=== PATIENT | female | born 1945 | race Caucasian/White ===

== ENCOUNTER 2022-07-23 19:17 | Emergency (ER) | payer OTHER, SELFPAY ==
--- NOTE | ~2022-07-23 | XR_ITS ---
XR hand RT min 3V 07/23/2022 19:49 Indication: Right hand pain after trauma Procedure: 3 views right hand Comparison: No prior studies for comparison. Findings: There is a large amount soft tissue swelling dorsal aspect of the hand overlying the metaca rpals. 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 Osteo penia. There is a small linear foreign body overlying the first distal phalanx. No acute fracture is identified. Impression: 1: No acute fracture. Large amount of soft tissue swelling dorsal aspect of the hand. 2: Severe polyarticular osteoarthritis. 3: Linear radiopaque foreign body overlying the first distal phalanx. Reviewed, dictated and finalized at location A. [facility] Impression: 1: No acute fracture. Large amount of soft tissue swelling dorsal aspect of the hand. 2: Severe polyarticular osteoarthritis. 3: Linear radiopaque foreign body overlying the first distal phalanx.
[2022-07-23 19:30] VITALS: BP 135/85; PULSE 89; RESP 20; TEMP 36.7; O2SAT 94
--- NOTE | 2022-07-23 19:43 | ED.UPPEXIN ---
HPI - Extremity Injury (Upper) General Chief Complaint: Extremity Injury, Upper Stated Complaint: right hand injury Source: patient and RN notes reviewed History of Present Illness HPI narrative: 76-year-old female presents to urgent care with complaints of right hand pain and swelling. Patient states approximately 1 hour prior to arrival she was pulling a dresser drawer out when it came down and fell onto her right hand. Patient does take aspirin daily. Related Data Home Medications Medication Instructions Recorded Confirmed amlodipine 5 mg tablet mg 07/23/22 aspirin 325 mg tablet mg 07/23/22 cholecalciferol (vitamin D3) 25 07/23/22 mcg (1,000 unit) tablet (Vitamin D3) simvastatin 20 mg tablet mg 07/23/22 Allergies Allergy/AdvReac Type Severity Reaction Status Date / Time acetaminophen [From Vicodin] AdvReac Nausea and Verified 07/23/22 19:32 Vomiting hydrocodone [From Vicodin] AdvReac Nausea and Verified 07/23/22 19:32 Vomiting Sulfa (Sulfonamide AdvReac Nausea and Verified 07/23/22 19:31 Antibiotics) Vomiting Review of Systems Review of Systems: CONSTITUTIONAL: Denies fever, chills, or sweats. EYES: Denies visual changes, redness, or discharge. ENT: Denies otalgia and sore throat CARDIOVASCULAR: Denies chest pain, palpitations, or edema. RESPIRATORY: Denies cough or dyspnea. GASTROINTESTINAL: Denies abdominal pain, nausea, vomiting, or diarrhea. GENITOURINARY: Denies dysuria or hematuria. SKIN: Denies rash or itching. MUSCULOSKELETAL: Right hand pain and swelling NEUROLOGIC: Denies headache, numbness, or weakness. PMFSH Comments At the time of my signature, I reviewed and agree with the nursing past medical, surgical, social, and family history. There is no relevant family history pertinent to the patient complaint. Exam Narrative: GENERAL: This is a well-nourished, well-developed patient, in no apparent distress. HEAD: normocephalic, atraumatic. EYES: Sclera clear/white. Vision is grossly intact. EARS: External ears normal NOSE: External nose normal with no obvious nasal discharge, nares without redness, no rhinorrhea. CARDIOVASCULAR: Regular rate. RESPIRATORY: No respiratory distress noted. SKIN: warm, intact with no suspicious lesions or rash, good texture and turgor. NEURO: awake, alert, and oriented to person, place and time. There were no obvious focal neurologic abnormalities. EXTREMITIES: Right dorsal hand swelling and tender Course Course Level of Care: Express Care Visit Vital Signs Vital signs: Vital Signs Temperature 98.0 F 07/23/22 19:30 Pulse Rate 89 07/23/22 19:30 Respiratory Rate 20 07/23/22 19:30 Blood Pressure 135/85 07/23/22 19:30 Pulse Oximetry 94 07/23/22 19:30 Oxygen Delivery Heliox 07/23/22 19:30 Temperature 98.0 F 07/23/22 19:30 Pulse Rate 89 07/23/22 19:30 Respiratory Rate 20 07/23/22 19:30 Blood Pressure 135/85 07/23/22 19:30 Pulse Oximetry 94 07/23/22 19:30 Oxygen Delivery Heliox 07/23/22 19:30 Reviewed MDM - Extremity Injury (Upper) MDM Narrative Medical decision making narrative: Elevate your right hand as much as possible and apply ice at least 3 times a day for 15 minutes each time. Follow-up with your primary care physician in 2-5 days. Differential Diagnosis Differential diagnosis: Likely fracture of hand and other (Hematoma, dislocation) Imaging Data [facility]'s [facility] [place] [id number] X[facility] Report Signed Patient: Joselyn Loaiza : 1945 MR#: [id number] Age/Sex: 76 / F Acct:[id number] Loc: [facility]? ? ADM Date: 07/23/22Attending Dr: Ordering Physician: Iza Gale APRN Date of Service: 07/23/22 Procedure(s): XR hand RT min 3V Accession Number(s): [id number] cc: Iza Gale APRN~ XR hand RT min 3V 07/23/2022 19:49 Indication: Right hand pain after
--- NOTE | 2022-07-23 20:02 | PC.NURSE ---
07/23/221999. FB ON X RAY TO RIGHT THUMB. PT REPORTS HAS HAD STAINLESS STEEL FB IN THE RIGHT THUMB FROM A JOB WHEN PT WAS YOUNGER. KENZIE LOPEZ RN
== END 2022-07-23 20:13 | disposition home or self-care (01) ==
PROVIDERS: Emergency Provider Nurse Practitioner Family
DX: S60.221A Contusion of right hand, initial encounter (principal); W22.8XXA Striking against or struck by other objects, initial encounter; Z79.82 Long term (current) use of aspirin; I10 Essential (primary) hypertension; Z95.1 Presence of aortocoronary bypass graft
CPT/HCPCS: 73130; 99213; G0463